=== PATIENT | male | born 1995 | race African-American/Black ===

== ENCOUNTER → 2019-10-21 11:42 | Outpatient (CLI) | payer OTHER | END | disposition home or self-care (01) | LOC: D.RAD 11:42 | PROVIDERS: ATTEND Nurse Practitioner Family | DX: R05 Cough (principal) ==

== ENCOUNTER → 2019-11-02 12:16 | Outpatient (CLI) | payer OTHER | END | disposition home or self-care (01) | LOC: D.RAD 12:16 | PROVIDERS: ATTEND Nurse Practitioner Family | DX: R05 Cough (principal) ==